=== PATIENT | female | born 1965 | race Caucasian/White ===

== ENCOUNTER 2019-02-06 21:26 | Emergency (ER) | payer BC ==
[~2019-02-06] VITALS: Ht 172.7 cm; Wt 82.7 kg
[2019-02-06] MEDS ORDERED: SYNTHROID88 MCG PO (21:45)
[2019-02-06] MEDS ORDERED: MELOXICAM15 MG PO (21:45)
[2019-02-06] MEDS ORDERED: ASPIRIN CHEWABL81 MG PO (21:46)
[2019-02-06] MEDS ORDERED: REQUIP XL4 MG PO (21:46)
[2019-02-06 22:31] VITALS: BP 130/70
== END 2019-02-06 22:31 | disposition home or self-care (01) | DRG 103 ==
LOC: ED 21:26
DX: G43.909 Migraine, unspecified, not intractable, without status migrainosus (principal); H53.143 Visual discomfort, bilateral

== ENCOUNTER 2020-03-30 16:35 | Emergency (ER) | payer BC ==
[~2020-03-30] VITALS: Ht 172.7 cm; Wt 95.0 kg
[~2020-03-30 16:35] MED LIST: ASPIRIN CHEWABL81 MG PO; MELOXICAM15 MG PO; REQUIP XL4 MG PO; SYNTHROID88 MCG PO
[2020-03-30] MEDS ORDERED: TOPAMAX50 M1 PO (17:37)
[2020-03-30] MEDS ORDERED: EFFEXOR XR75 MG/CAP PO (17:37)
[2020-03-30] MEDS ORDERED: AIMOVIG140 MG/ML IM (17:39)
[2020-03-30] MEDS ORDERED: UBRELVY100 MG PO (17:41)
[2020-03-30] MEDS ORDERED: FIORICET PO (17:42)
[2020-03-30] MEDS ORDERED: VITAMIN D2000 UNI1 PO (17:43)
[2020-03-30] MEDS ORDERED: [UNRECOGNIZED DRUG - OTHER] (17:45)
[2020-03-30] MEDS ORDERED: CALCIUM250 M1 PO (17:46)
[2020-03-30] MEDS ORDERED: MEDDOSEPAK PO (18:33)
[2020-03-30 18:52] VITALS: BP 131/87
== END 2020-03-30 18:52 | disposition home or self-care (01) | DRG 558 ==
LOC: ED 16:35
DX: M77.52 Other enthesopathy of left foot and ankle (principal); I73.00 Raynaud's syndrome without gangrene; E03.9 Hypothyroidism, unspecified; M79.7 Fibromyalgia

== ENCOUNTER 2020-04-08 17:51 | Emergency (ER) | payer BC ==
[~2020-04-08] VITALS: Ht 172.7 cm; Wt 95.5 kg
[~2020-04-08 17:51] MED LIST changes: +AIMOVIG140 MG/ML IM; +CALCIUM250 M1 PO; +EFFEXOR XR75 MG/CAP PO; +FIORICET PO; +MEDDOSEPAK PO; +TOPAMAX50 M1 PO; +UBRELVY100 MG PO; +VITAMIN D2000 UNI1 PO; +[UNRECOGNIZED DRUG - OTHER]
[2020-04-08 23:21] VITALS: BP 127/72
== END 2020-04-08 23:48 | disposition home or self-care (01) | DRG 103 ==
LOC: ED 17:51
DX: G43.909 Migraine, unspecified, not intractable, without status migrainosus (principal); E03.9 Hypothyroidism, unspecified; I73.00 Raynaud's syndrome without gangrene; M79.7 Fibromyalgia; Z86.79 Personal history of other diseases of the circulatory system

== ENCOUNTER 2021-05-23 22:10 | Emergency (ER) | payer BC ==
[~2021-05-23] VITALS: Ht 172.7 cm; Wt 97.0 kg
[2021-05-23 22:18] VITALS: BP 135/85
[2021-05-23] MEDS ORDERED: VIBRAMYCIN100 M2 PO (22:28)
[2021-05-23 22:30] VITALS: BP 117/81
[2021-05-23 22:32] VITALS: BP 117/81
== END 2021-05-23 22:38 | disposition home or self-care (01) | DRG 603 ==
LOC: ED 22:10
DX: L03.115 Cellulitis of right lower limb (principal); E03.9 Hypothyroidism, unspecified

== ENCOUNTER 2022-07-17 17:14 | Emergency (ER) | payer BC ==
[2022-07-17] VITALS (9 sets, daily range): BP systolic 120–146; BP diastolic 65–88
[~2022-07-17] VITALS: Ht 172.7 cm; Wt 104.3 kg
[~2022-07-17 17:14] MED LIST changes: +VIBRAMYCIN100 M2 PO
[2022-07-17 18:19] LABS: BASO% 0.1 % (0-3); EOS% 1.5 % (0-8); HEMATOCRIT 42.5 % (37.0-47.0); HEMOGLOBIN 13.9 g/dl (12.0-16.0); IMMATURE GRANULOCYTES 0.2 % (0.0-5.0); LYMPH% 3.9 % (15-41); MEAN CELL VOLUME 95.7 fL CALC (80.0-100.0); MEAN CORPUSCULAR HGB 31.3 pG CALC (26.0-32.0); MEAN CORPUSCULAR HGB CONC 32.7 g/dL CAL (32.0-36.0); MONO% 4.4 % (2-13); NEUT# 8.01 thou/uL (2.00-7.15); NEUT% 89.9 % (42-76); RED BLOOD COUNT 4.44 mill/uL (4.20-5.60); RED CELL DISTRI WIDTH 12.4 % (11.5-15.5)
[2022-07-17 18:39] LABS: ALBUMIN 4.1 g/dL (3.2-5.0); ALKALINE PHOSPHATASE 69 u/l (38-126); ANION GAP 11 (6-22 (CALC)); BILIRUBIN, TOTAL 0.3 mg/dL (0.02-1.3); BUN 18 mg/dL (7-17); BUN/CREATININE RATIO 20 (12-20 (CALC)); CARBON DIOXIDE 26 mmol/l (22-30); CHLORIDE 102 mmol/l (95-108); CREATININE 0.9 mg/dL (0.5-1.0); GFR FOR AFR.AMER. > 60 ML/MIN (>=60 (CALC)); GFR OTHER RACES > 60 ML/MIN (>=60 (CALC)); POTASSIUM 4.1 mmol/l (3.5-5.1); SGOT/AST 50 u/l (14-36); SODIUM 135 mmol/l (137-146); TOTAL PROTEIN 7.2 g/dL (6.3-8.2)
[2022-07-17 20:08] LABS: URINE BILIRUBIN - DIPSTICK NEGATIVE (NEGATIVE); URINE BLOOD DIPSTICK NEGATIVE (NEGATIVE); URINE COLOR YELLOW; URINE GLUCOSE - DIPSTICK NEGATIVE (NEGATIVE); URINE KETONE NEGATIVE (NEGATIVE); URINE LEUK ESTERASE NEGATIVE (NEGATIVE); URINE PROTEIN - DIPSTICK NEGATIVE (NEG-TRACE); URINE UROBILINOGEN - DIPSTICK 0.2 E.U./dL (0.2)
[2022-07-17 20:09] LABS: URINE NITRITE - DIPSTICK NEGATIVE (Negative)
[2022-07-18 09:55] VITALS: BP 117/62
[2022-07-18 10:00] VITALS: BP 142/66
[2022-07-18 10:16] VITALS: BP 108/41
== END 2022-07-18 00:13 | disposition home or self-care (01) | DRG 103 ==
LOC: ED 17:14
PROVIDERS: Family Medicine
DX: G43.909 Migraine, unspecified, not intractable, without status migrainosus (principal); B34.9 Viral infection, unspecified; E03.9 Hypothyroidism, unspecified; M79.7 Fibromyalgia; E66.9 Obesity, unspecified; Z20.822 Contact with and (suspected) exposure to COVID-19